=== PATIENT | male | born 1990 | race American Indian/Alaskan Native ===

== ENCOUNTER 2018-09-04 10:35 | Emergency (ER) | payer OTHER ==
[2018-09-04 10:47] VITALS: BP 136/81
--- NOTE | 2018-09-04 11:09 | Emergency Department Report ---
Abscess Boil HPI - HPI Chief Complaint: Skin/Abscess/Foreign Body Stated Complaint: INNER THIGH BLEEDING SORE Time Seen by Provider: 09/04/18 10:55 Duration: 3 Days Location: Other (right groin area) History: Yes Pain, Yes Purulent Drainage, No Fever, No Numbness, No Foreign Body, No Previous History, No Insect Bite HPI: 27-year-old -[place] male presents to the emergency room for a to the right 5 since .. Patient reports that it started hurting yesterday and started draining this morning. Patient states bloody drainage. Patient had had in the past. Patient currently has no past medical history takes no medications on a daily basis and his primary care provider is at [facility]. Home Medications: Previous Rx's Medication Instructions Recorded Last Taken Type Amoxicillin [Amoxicillin TAB] 875 mg PO BID 10 Days #20 tablet 09/04/18 Unknown Rx Ibuprofen [Motrin 600 MG tab] 600 mg PO Q8H PRN #15 tablet 09/04/18 Unknown Rx traMADol [Ultram 50 MG tab] 50 mg PO Q6HR PRN #10 tablet 09/04/18 Unknown Rx Allergies/Adverse Reactions: Allergies Allergy/AdvReac Type Severity Reaction Status Date / Time No Known Allergies Allergy Unverified 09/04/18 10:37 ED Review of Systems ROS: Stated complaint: INNER THIGH BLEEDING SORE Other details as noted in HPI Comment: All other systems reviewed and negative Constitutional: denies: chills, fever Skin: lesions ED Past Medical Hx - Past Medical History Previous Medical History?: No - Surgical History Past Surgical History?: No - Social History Smoking Status: Current Every Day Smoker Substance Use Type: Alcohol, Marijuana - Medications Home Medications: Home Medications Medication Instructions Recorded Confirmed Last Taken Type Amoxicillin [Amoxicillin TAB] 875 mg PO BID 10 Days #20 tablet 09/04/18 Unknown Rx Ibuprofen [Motrin 600 MG tab] 600 mg PO Q8H PRN #15 tablet 09/04/18 Unknown Rx traMADol [Ultram 50 MG tab] 50 mg PO Q6HR PRN #10 tablet 09/04/18 Unknown Rx ED Abscess Boil Physical Exam - Exam General: Vital signs noted. No distress. Alert and acting appropriately. Size: 2 cm Exam: Yes Tenderness, No Fluctuance, No Surrounding Cellulites/Erythema, No Lymphangitis (lympadenopathy right groin), No Crepitation, No Heart Murmur, No Normal Neurologic Exam, No Normal Circulation ED Course Vital Signs 09/04/18 10:44 Temperature 98.8 F Pulse Rate 71 Respiratory 18 Rate Blood Pressure 136/81 O2 Sat by Pulse 99 Oximetry Critical care attestation.: If time is entered above; I have spent that time in minutes in the direct care of this critically ill patient, excluding procedure time. ED Medical Decision Making - Medical Decision Making 27-year-old -[place] male presents to the emergency room for to the right groin. Boil has begun to drain. Non fluctuant not able to incise and drain. She'll be placed on antibiotics and pain medication and instructions to do warm Epson salt soaks. Patient verbalized understanding ED Disposition Clinical Impression: Boil of groin Disposition: DC-01 TO HOME OR SELFCARE Is pt being admited?: No Does the pt Need Aspirin: No Condition: Stable Instructions: Furunculosis and Carbunculosis (ED) Additional Instructions: Complete antibiotics as prescribed. Pain medication as needed. Warm Epsom salt soaks daily. Follow-up with her primary care provider if his symptoms persist or gets worse. Prescriptions: Amoxicillin [Amoxicillin TAB] 875 mg PO BID 10 Days #20 tablet Ibuprofen [Motrin 600 MG tab] 600 mg PO Q8H PRN #15 tablet PRN Reason: Pain , Severe (7-10) traMADol [Ultram 50 MG tab] 50 mg PO Q6HR PRN #10 tablet PRN Reason: Pain , Severe (7-10)
[2018-09-04] MEDS ORDERED: IBUPROFEN PO ONE (11:13)
[2018-09-04] MEDS ORDERED: ULTRAM PO ONE (11:13)
== END 2018-09-04 11:33 | disposition home or self-care (01) ==
LOC: ED 10:35
DX: L02.224 Furuncle of groin (principal); F17.200 Nicotine dependence, unspecified, uncomplicated; F12.10 Cannabis abuse, uncomplicated
CPT/HCPCS: 99282